=== PATIENT | female | born 1960 | race Caucasian/White ===

== ENCOUNTER → 2024-05-02 10:54 | Outpatient (REF) | payer BC, SELFPAY | LOC: HWWDC 10:54 | PROVIDERS: ATTENDING PHYSICIAN Nurse Practitioner Family; FAMILY PHYSICIAN Family Medicine | DX: Z12.31 Encounter for screening mammogram for malignant neoplasm of breast (principal) | CPT/HCPCS: 77063; 77067 ==

== ENCOUNTER → 2024-06-24 10:53 | Outpatient (REF) | payer SELFPAY | LOC: HWRAD 10:53 | PROVIDERS: ATTENDING PHYSICIAN Family Medicine | DX: E78.49 Other hyperlipidemia (principal); Z78.0 Asymptomatic menopausal state; Z12.11 Encounter for screening for malignant neoplasm of colon | CPT/HCPCS: 75571; 77080 ==

== ENCOUNTER → 2024-09-25 12:21 | Outpatient (REF) | payer BC, SELFPAY | LOC: HWRAD 12:21 | PROVIDERS: ATTENDING PHYSICIAN Internal Medicine Rheumatology; FAMILY PHYSICIAN Family Medicine | DX: M15.9 Polyosteoarthritis, unspecified (principal); M54.9 Dorsalgia, unspecified; M81.0 Age-related osteoporosis without current pathological fracture | CPT/HCPCS: 72070; 72100 ==

== ENCOUNTER 2024-12-29 12:56 | Emergency (ER) | payer BC, SELFPAY ==
--- NOTE | 2024-12-29 13:33 | ED.GENMED ---
ED Provider Triage
<Mat Epperson PA-C - Last Filed: 12/29/24 13:33>
-
Patient seen by provider in Triage?: Seen in Triage
64-year-old female not anticoagulated presents with persistent headache and neck pain after falling and hitting her head on a wood table. She called the family doctor today and they sent her here for eval CT scan. No loss conscious.
Neurologically intact with stable vital signs at triage. CT of head and cervical spine ordered.
seen by provider in triage but warrants further assessment
History of Present Illness
<Mat Epperson PA-C - Last Filed: 12/29/24 13:33>
General
Chief Complaint: Head Injury
Time Seen by Provider: 12/29/24 14:31
<Bashir Thompson MD - Last Filed: 12/29/24 16:13>
General
Source: patient
Exam Limitations: none
History of Present Illness
History of Present Illness:
Patient hit her head 9 days ago. Had gotten up from the bathroom. She did have 2 drinks that evening and is taking a new injection for osteoporosis. When she got up out of the bathroom she states she felt like she passed out hit her head on the
door which woke her up but then has complaining of ongoing lightheadedness vague dizziness symptoms for the last 9 days. She called her primary care physician who recommended ER evaluation. She did not have any neck pain did admit on the exam that
she had some mild left paracervical neck no thinners. No recurrent syncope. No chest pain shortness of breath or other complaints.
Past History
<Bashir Thompson MD - Last Filed: 12/29/24 16:13>
Past History
ED Past Medical History: None
ED Past Surgical History: Orthopedic
Review of Systems
<Bashir Thompson MD - Last Filed: 12/29/24 16:13>
Review of Systems
All Other Systems: Not applicable
Respiratory: Denies trouble breathing
Cardiac: Denies chest pain or palpitations
Phy Exam
<Bashir Thompson MD - Last Filed: 12/29/24 16:13>
Physical Exam
Physical Exam:
GENERAL: Alert and oriented in no apparent distress. No obvious scalp trauma
EYE: Orbits normal.
NECK: Supple, minimal mild left posterior paracervical tenderness
ENT: Pharynx without erythema
CARDIAC: Regular rate and rhythm without any obvious murmurs.
LUNGS: Clear breath sounds,normal
ABDOMEN: Soft, without focal tenderness or distention
NEUROLOGICAL: Alert and oriented , grossly non-focal
SKIN: Warm and dry, no rash or lesion, no discoloration, skin intact.
MUSCULOSKELETAL: No edema,no deformity.Good color
PSYCH: Normal and appropriate interaction.. Cranial nerves II through XII intact. Speech normal. [id number] normal. No drift.
Course
<Mat Epperson PA-C - Last Filed: 12/29/24 13:33>
Orders/Labs/Results
Orders:
Orders
12/29/24 13:31
CT Cervical Spine W/o Iv Contr Urgent
Comment:
Reason For Exam: fall, neck pain
12/29/24 13:32
CT Head W/o Iv Contrast Urgent
Comment:
Reason For Exam: fall, head injury
12/29/24 14:41
EKG [Electrocardiogram (*1)] Urgent
Reason for Study: Syncope
EKG- Treatment ONCE
Vital Signs
Initial and Last Documented VS:
Initial Vital Signs
Temp Pulse Resp Pulse Ox
98.1 F 63 16 98
12/29/24 13:27 12/29/24 13:27 12/29/24 13:27 12/29/24 13:27
Last Documented Vital Signs
Temp Pulse Resp Pulse Ox
98.1 F 63 16 98
12/29/24 13:27 12/29/24 13:27 12/29/24 13:27 12/29/24 13:27
<Bashir Thompson MD - Last Filed: 12/29/24 16:13>
Orders/Labs/Results
Orders:
Orders
12/29/24 13:31
CT Cervical Spine W/o Iv Contr Urgent
Comment:
Reason For Exam: fall, neck pain
12/29/24 13:32
CT Head W/o Iv Contrast Urgent
Comment:
Reason For Exam: fall, head injury
12/29/24 14:41
EKG [Electrocardiogram (*1)] Urgent
Reason for Study: Syncope
EKG- Treatment ONCE
Vital Signs
Initial and Last Documented VS:
Initial Vital Signs
Temp Pulse Resp Pulse Ox
98.1 F 63 16 98
12/29/24 13:27 12/29/24 13:27 12/29/24 13:27 12/29/24 13:27
Last Documented Vital Signs
Temp Pulse Resp Pulse Ox
98.1 F 63 16 98
12/29/24 13:27 12/29/24 13:27 12/29/24 13:27 12/29/24 13:27
<Bashir Thompson MD - Last Filed: 12/29/24 16:13>
MDM/Problems Addressed
Differential Diagnosis Includes:
Recent head injury with ongoing symptoms. Likely concussion. CT head to rule out subdural. Mild paracervical tenderness with this. Will also get CT cervical spine. Patient describing possibly a brief near syncopal or syncopal episode after
getting up in the bathroom. She has had no recurring episodes no nausea vomiting chest pain shortness of breath abdominal pain diarrhea etc. No risk factors for sudden cardiac arrest. Will get an EKG to be sure there is no QT interval Brugada
syndrome or heart block. Very low suspicion. Do not feel labs at this time are warranted. She has nothing that would be concerning to expect any electrolyte abnormality anemia etc. She has had no ongoing symptoms that would make me suspicious of
this
<Bashir Thompson MD - Last Filed: 12/29/24 16:13>
*Radiology
Radiology exam reviewed: radiology read reviewed (neg)
*Pulse Oximetry
Patient hypoxic: no
*EKG
Interpreted by ED Provider?: Yes
Interpretation: abnormal
Comparison EKG: no comparison EKG present
Heart Rate: 55
Rate: bradycardiac
Rhythm: sinus
[place]: normal axis
Interval: normal interval
QRS Pattern: normal QRS
Ischemia: no ischemia
*Critical Care Note
Total Time (30-74mins, 75-104mins- exclusive of procedures): Not Applicable
<Bashir Thompson MD - Last Filed: 12/29/24 16:13>
Update Note
Update Note:
EKG stable. Concussion stable discharged to follow-up
ED Attending Note
<Mat Epperson PA-C - Last Filed: 12/29/24 13:33>
-
Portions of this chart may have been created with voice recognition software.� Occasional wrong word or��sound alike� substitutions may have occurred due to the inherent limitations of voice recognition software.
Discharge Plan
Departure
Patient Disposition: Home (Routine Discharge)
Date of Disposition: 12/29/24
Time of Disposition: 16:13
Patient with high blood pressure during this ER visit?: No
Discharge Problem:
Recent head injury/concussion
Instructions: Concussion, Adult (DC)
Referrals:
Shama Sellers, [Family Provider] - Follow up in 2-3 days
Interventions
Interventions:
*Risk Screen - Suicide Last Done: 12/29/24 13:30
*Neglect/Abuse Screening Last Done: 12/29/24 13:30
Discharge Date and Time
Print Language: [id number]
[2024-12-29 16:24] VITALS: BP 147/82
[2024-12-29 16:39] VITALS: BP 147/84
== END 2024-12-29 16:41 | disposition home or self-care (01) ==
LOC: EMR 12:56
PROVIDERS: EMERGENCY PHYSICIAN Emergency Medicine; FAMILY PHYSICIAN Family Medicine
DX: S09.90XA Unspecified injury of head, initial encounter (principal); W19.XXXA Unspecified fall, initial encounter; M81.0 Age-related osteoporosis without current pathological fracture; Z79.899 Other long term (current) drug therapy
CPT/HCPCS: 99284; 70450; 72125; 93005

== ENCOUNTER 2025-06-19 06:18 | Day surgery (SDC) | payer MEDICARE, OTHER, SELFPAY | END 2025-06-19 09:13 | disposition home or self-care (01) | LOC: GI 06:18 | PROVIDERS: ATTENDING PHYSICIAN Internal Medicine Gastroenterology | DX: Z12.11 Encounter for screening for malignant neoplasm of colon (principal); K63.5 Polyp of colon; K57.30 Diverticulosis of large intestine without perforation or abscess without bleeding; K62.89 Other specified diseases of anus and rectum; Z86.0100 Personal history of colon polyps, unspecified; Z80.0 Family history of malignant neoplasm of digestive organs | CPT/HCPCS: 45385; 88305 ==

== ENCOUNTER → 2025-08-27 07:28 | Outpatient (REF) | payer MEDICARE, OTHER, SELFPAY | LOC: HWWDC 07:28 | PROVIDERS: ATTENDING PHYSICIAN Obstetrics & Gynecology; FAMILY PHYSICIAN Family Medicine | DX: Z12.31 Encounter for screening mammogram for malignant neoplasm of breast (principal) | CPT/HCPCS: 77063; 77067 ==